=== PATIENT | male | born 1965 | race Caucasian/White ===

== ENCOUNTER 2016-10-24 18:46 | Emergency (ER) | payer MEDICAID ==
[2016-10-24] MEDS ORDERED: Sodium Chloride 0.9% 500 ML IV ONE (19:31)
[2016-10-24] MEDS ORDERED: Sodium Chloride 0.9% 1,000 ML IV ONE (19:31)
--- NOTE | 2016-10-24 19:37 | ED Physician Chart ---
Chief Complaint/HPI - Patient Information Date Seen:: 10/24/16 Time Seen:: 19:00 Chief Complaint:: found with decreased level of consciousness in bushes. History of Present Illness:: Pt. brought in by EMS. No hx except suspected EtOH and a vial of Xanax found on pt. Pt. is mumbling. No other known hx. Allergies:: Allergies Allergy/AdvReac Type Severity Reaction Status Date / Time No Known Allergies Allergy Verified 10/24/16 19:06 Vitals:: Vital Signs - 8 hr 10/24/16 19:07 Temp 96.8 F HR 83 RR 18 BP 131/81 O2 Sat % 100 Historian:: EMS Review of Systems - Review of Systems General/Constitutional: No fever Skin: No skin lesions Head: No headache (no complaints, unknown.) Cardio Vascular: No chest pain Pulmonary: No SOB, No cough GI: No vomiting, No diarrhea Psychiatric: No prior psych history (unknown. Pt. is not giving hx.) Past Medical History - Past Medical History Past Medical History: No significant medical hx (No known med. hx. except suspected EtOH and a vial of Xanax) Family History: None (unknown) Social History: Alcohol (suspected) Surgical History: None (unknown) Medication: Reviewed (xanax, if any others, unknown.) Family Medical History - Family Member Mother History Unknown: Yes Physical Exam - Physical Examination General/Constitutional: No distress (arousable, but not giving hx.) Head: Atraumatic Eyes: Lids, conjuctiva normal, PERRL, EOMI Skin: Nl inspection ENMT: External ears, nose nl Neck: Nontender, Full ROM w/o pain Respiratory: Nl effort/Exclusion, Clear to Auscultation Cardio Vascular: RRR, No murmur, gallop, rubs GI: No tenderness/rebounding/guarding : No CVA tenderness Neuro/Psych: No focal deficits Labs/Radiology/EKG Results - Lab Results Results: EKG shows NSR wth rate 82. Nl axis. No acute ST changes. Delayed R wave in precordium. Pt. is more easily arousable. Still not a good historian. CK MB/CPK = 0.0411 0.0411 X 100% = 4.11. Less than 5. Pt. has no chest pain. BUN/creat = 14/0.9. Amylase and lipase are normal or low. EtOH is 392. PT is 0.95 and PTT is 24.9. WBC= 6.9 and H/H = 16.9/49.6 CXR shows COPD. 2330: Pt. is more arousable. Asking for water. No c/o pain. Pt. is using cell phone and conversing normally. No complaints. ED Septic Shock - . Is Septic Shock (SBP<90, OR Lactate>4 mmol\L) present?: No - <6hrs of presentation: Vital Signs: Vital Signs - 8 hr 10/24/16 19:07 Temp 96.8 F HR 83 RR 18 BP 131/81 O2 Sat % 100 Reassessment (Disposition) - Reassessment Reassessment Condition:: Improved - Diagnosis Diagnosis:: Dx: Acute ethanol intoxication - Aftercare/Follow up Instructions Aftercare/Follow-Up Instructions:: Counseled pt regarding lab results/diagnosis & need follow up Notes:: Plenty of fluids. No alcohol or sedatives. - Patient Disposition Discharge/Transfer:: Home Condition at Disposition:: Improved ED Discharge Plan - Patient Disposition Admit/Discharge/Transfer: PT DISCHARGED HOME Condition at Disposition: Improved
[2016-10-24 19:52] LABS: % BASOPHILS 0.2 % (0.0-2.0); % EOSINOPHILS 1.9 % (0.0-5.0); % LYMPHOCYTES 26.8 % (20.0-50.0); % MONOCYTES 5.4 % (2.0-10.0); % NEUTROPHILS 65.7 % (40.0-80.0); HEMATOCRIT 49.6 % (39.0-49.0); HEMOGLOBIN 16.9 gm/dL (13.2-17.3); MEAN CELL VOLUME 89.5 fl (80-99); MEAN CORPUSCULAR HEMOGLOBIN 30.5 pg (26.0-30.0); MEAN PLATELET VOLUME 7.8 fl; NEUTROPHILE ABSOLUTE 4.6 Th/cmm (1.8-8.0); PLATELET COUNT 208 Th/cmm (150-400); RED BLOOD COUNT 5.54 Mil/cmm (4.30-5.70); WHITE BLOOD COUNT 6.9 Th/cmm (4.8-10.8)
[2016-10-24 19:59] LABS: INR 0.95 (0.5-1.4); PROTHROMBIN TIME (TEST) 9.4 SECONDS (9.5-11.5)
[2016-10-24 20:05] LABS: ALB/GLOB RATIO 1.8 (1.0-1.8); ALKALINE PHOSPHATASE 89 U/L (34-104); AMYLASE SERUM 26 U/L (29-103); ANION GAP 21.8 (7.0-16.0); BILIRUBIN,TOTAL 0.6 mg/dL (0.3-1.0); BUN - UREA NITROGEN 14 mg/dL (7-25); BUN/CREATININE RATIO 15.6; CALCIUM SERUM 9.3 mg/dL (8.6-10.3); CARBON DIOXIDE 25.1 mEq/L (21.0-31.0); CHLORIDE 99 mEq/L (98-107); CREATININE - SERUM 0.9 mg/dL (0.7-1.3); GLUCOSE 77 mg/dL (70-105); LIPASE 15 U/L (11-82); POTASSIUM SERUM 3.9 mEq/L (3.5-5.1); SGOT 57 U/L (13-39); SGPT/ALT 49 U/L (7-52); SODIUM SERUM 142 mEq/L (136-145)
[2016-10-24 20:09] LABS: CREATINE KINASE MB 21.8 ng/mL (0.6-6.3)
[2016-10-25] LABS: AMPHETAMINE URINE NEGATIVE (NEGATIVE); BARBITURATES URINE NEGATIVE (NEGATIVE)
[2016-10-25 00:58] LABS: URINE BILIRUBIN NEGATIVE (NEGATIVE); URINE BLOOD NEGATIVE (NEGATIVE); URINE COLOR YELLOW; URINE GLUCOSE (UA) NEGATIVE (NEGATIVE); URINE KETONE 40 mg/dL (NEGATIVE); URINE PH 5.5
[2016-10-25 00:59] LABS: URINE PROTEIN TRACE mg/dL (NEGATIVE); URINE UROBILINOGEN 0.2 E.U./dL (0.2 - 1.0)
[2016-10-25 01:00] LABS: URINE BACTERIA NONE SEEN /hpf (NONE SEEN); URINE EPITHELIAL CELLS NONE SEEN /lpf (FEW); URINE RBC NONE SEEN /hpf (0-5); URINE WBC NONE SEEN /hpf (0-5)
--- NOTE | 2016-10-25 09:59 | Diagnostic Imaging Report ---
Portable chest x-ray History: Cough Allowing for portable technique the heart size is normal. No focal pulmonary parenchymal processes. No hilar or mediastinal abnormalities. Impression: No acute abnormalities.
== END 2016-10-25 00:20 | disposition home or self-care (01) ==
LOC: ER 18:46
DX: F10.129 Alcohol abuse with intoxication, unspecified (principal)
CPT/HCPCS: 99285; 96360; 96361; 93005; 71010; 84484; 36415; 80300; 85025; 85610; 85730; 81001; 80320; 82150; 82550; 82553 ×2; 83690; 80053; J7040; 81003-TC; J7030

== ENCOUNTER 2017-02-28 00:52 | Emergency (ER) | payer MEDICAID ==
--- NOTE | 2017-02-28 01:34 | ED Physician Chart ---
Chief Complaint/HPI - Patient Information Date Seen:: 02/28/17 Time Seen:: 01:06 Chief Complaint:: alcohol intoxication History of Present Illness:: this is a 51 yo who was found down in front of a [employer] store and bib ems lethargic smelling like alcohol. his history and review of systems is not reliable at this time. Allergies:: Allergies Allergy/AdvReac Type Severity Reaction Status Date / Time No Known Allergies Allergy Verified 10/24/16 19:06 Vitals:: Vital Signs - 8 hr 02/28/17 01:00 Temp 97.6 F HR 96 RR 18 BP 127/91 O2 Sat % 96 Historian:: Patient, EMS, Medical Records Review:: Nurse's Note Reviewed Review of Systems - Review of Systems General/Constitutional: No fever, No chills, No weight loss, No weakness, No diaphoresis, No edema, No loss of appetite, Other (not able to give it) Skin: No skin lesions, No rash, No bruising Head: No headache, No light-headedness Eyes: No loss of vision, No pain, No diplopia ENT: No earache, No nasal drainage, No sore throat, No tinnitus Neck: No neck pain, No swelling, No thyromegaly, No stiffness, No mass noted Cardio Vascular: No chest pain, No palpitations, No PND, No orthopnea, No edema Pulmonary: No SOB, No cough, No sputum, No wheezing GI: No nausea, No vomiting, No diarrhea, No pain, No melena, No hematochezia, No constipation, No hematemesis G/U: No dysuria, No frequency, No hematuria Musculoskeletal: No bone or joint pain, No back pain, No muscle pain Endocrine: No polyuria, No polydipsia Psychiatric: No prior psych history, No depression, No anxiety, No suicidal ideation Hematopoietic: No bruising, No lymphadenopathy Allergic/Immuno: No urticaria, No angioedema Neurological: No syncope, No focal symptoms, No weakness, No paresthesia, No headache, No seizure, No dizziness, No confusion, No vertigo Past Medical History - Past Medical History Obtainable: Yes Past Medical History: No significant medical hx Family History: None Social History: Smoker, Alcohol, No Drug Use, Lives With Parents Surgical History: other (oral surgery) Psychiatricy History: None Medication: Reviewed Family Medical History - Family Member Mother History Unknown: Yes Father Hx Family Cancer: Yes Physical Exam - Physical Examination General/Constitutional: Well-developed, well-nourished, Alert, No distress, GCS 15, Non-toxic appearing, Ambulatory Other Gen/Cons comments:: THIS PATIENT IS LETHARGIC AND SLUGGISH IN HIS RESPONSES. Head: Atraumatic Eyes: Lids, conjuctiva normal, PERRL, EOMI Skin: Nl inspection, No rash, No skin lesions, No ecchymosis, Well hydrated, No lymphadenopathy ENMT: External ears, nose nl, Nasal exam nl, Lips, teeth, gums nl Neck: Nontender, Full ROM w/o pain, No JVD, No nuchal rigidity, No bruit, No mass, No stridor Respiratory: Nl effort/Exclusion, Clear to Auscultation, No Wheeze/Rhonchi/Rales Cardio Vascular: RRR, No murmur, gallop, rubs, NL S1 S2 GI: No tenderness/rebounding/guarding, No organomegaly, No hernia, Normal BS's, Nondistended, No mass/bruits, No McBurney tenderness : No CVA tenderness Extremities: No tenderness or effusion, Full ROM, normal strength in all extremities, No edema, Normal digits & nails Neuro/Psych: Alert/oriented, DTR's symmetric, Normal sensory exam, Normal motor strength, Judgement/insight normal, Mood normal, Normal gait, No focal deficits Misc: normal gait, Normal back, No paraspinal tenderness ED Septic Shock - . Is Septic Shock (SBP<90, OR Lactate>4 mmol\L) present?: No - <6hrs of presentation: Vital Signs: Vital Signs - 8 hr 02/28/17 01:00 Temp 97.6 F HR 96 RR 18 BP 127/91 O2 Sat % 96 Reassessment (Disposition) - Reassessment Reassessment Condition:: Improved - Diagnosis Diagnosis:: ALCOHOL INTOXICATION - Aftercare/Follow up Instructions Aftercare/Follow-Up Instructions:: Counseled pt regarding lab results/diagnosis & need follow up, Refer to Discharge Instructions, Counseled pt & family regarding lab results/diagnosis & need follow up - Patient Disposition Discharge/Transfer:: Home Condition at Disposition:: Improved ED Discharge Plan - Patient Disposition Admit/Discharge/Transfer: PT DISCHARGED HOME Condition at Disposition: Improved
[2017-02-28 02:05] LABS: % BASOPHILS 0.5 % (0.0-2.0); % EOSINOPHILS 0.9 % (0.0-5.0); % LYMPHOCYTES 19.6 % (20.0-50.0); % MONOCYTES 6.3 % (2.0-10.0); % NEUTROPHILS 72.7 % (40.0-80.0); MEAN CELL VOLUME 90.7 fl (80-99); MEAN CORPUSCULAR HEMOGLOBIN 30.5 pg (26.0-30.0); MEAN CORPUSCULAR HGB CONC 33.6 pg (28.0-36.0); MEAN PLATELET VOLUME 8.2 fl; NEUTROPHILE ABSOLUTE 6.8 Th/cmm (1.8-8.0); RED BLOOD COUNT 4.81 Mil/cmm (4.30-5.70); RED CELL DISTRIBUTION WIDTH 12.4 % (11.5-20.0)
[2017-02-28 02:21] LABS: WHITE BLOOD COUNT 9.3 Th/cmm (4.8-10.8)
[2017-02-28 02:22] LABS: HEMATOCRIT 43.7 % (39.0-49.0); HEMOGLOBIN 14.7 gm/dL (13.2-17.3); PLATELET COUNT 158 Th/cmm (150-400)
[2017-02-28 02:24] LABS: ALB/GLOB RATIO 1.9 (1.0-1.8); ALKALINE PHOSPHATASE 75 U/L (34-104); ANION GAP 15.1 (7.0-16.0); BILIRUBIN,TOTAL 0.7 mg/dL (0.3-1.0); BUN - UREA NITROGEN 10 mg/dL (7-25); BUN/CREATININE RATIO 14.3; CALCIUM SERUM 9.4 mg/dL (8.6-10.3); CARBON DIOXIDE 28.4 mEq/L (21.0-31.0); CHLORIDE 101 mEq/L (98-107); CREATININE - SERUM 0.7 mg/dL (0.7-1.3); GLUCOSE 88 mg/dL (70-105); POTASSIUM SERUM 3.5 mEq/L (3.5-5.1); SGOT 104 U/L (13-39); SGPT/ALT 85 U/L (7-52); SODIUM SERUM 141 mEq/L (136-145)
[2017-02-28 02:25] LABS: CHOLESTEROL 184 mg/dL (<200); TRIGLYCERIDES 76 mg/dL (<150)
[2017-02-28 02:29] LABS: INR 0.87 (0.5-1.4); PROTHROMBIN TIME (TEST) 8.9 SECONDS (9.5-11.5)
[2017-02-28] MEDS ORDERED: KCL 20mEq/100mL Premix 20 MEQ/100 ML PIGGYBACK IV ONE (03:25)
[2017-02-28] MEDS: Sodium Chloride 0.9% 1,000 ML IV ONE (03:55)
[2017-02-28] MEDS: KCL 20mEq/100mL Premix 20 MEQ/100 ML PIGGYBACK IV ONE (03:56)
== END 2017-02-28 08:00 | disposition left against medical advice (07) ==
LOC: ER 00:52
DX: F10.129 Alcohol abuse with intoxication, unspecified (principal); F17.200 Nicotine dependence, unspecified, uncomplicated
CPT/HCPCS: 99285; 96360; 96361; 93005; 84484 ×2; 36415; 84443; 86592; 85025; 85610; 85730; 80320 ×2; 80053; 80061; 87040 ×2; J3480